=== PATIENT | male | born 1990 | race Caucasian/White ===

== ENCOUNTER 2023-04-05 14:00 | Emergency (ER) | payer SELFPAY ==
[~2023-04-05] VITALS: Ht 182.9 cm; Wt 102.1 kg
[2023-04-05] MEDS ORDERED: cefTRIAXone 1,000 MG VIAL (for IV or IM) IM STA (14:14)
[2023-04-05] MEDS ORDERED: TETANUS,DIPTH,PERTUSS P/F (BOOSTRIX) 0.5 ML VIAL IM ONE (14:15)
[2023-04-05] MEDS ORDERED: LIDOCAINE 1% INJ 20 ML VIAL INJ ONE (14:15)
[2023-04-05] MEDS ORDERED: LIDOCAINE 1% INJ 20 ML VIAL INJ STA (14:16)
[2023-04-05] MEDS ORDERED: LIDOCAINE 1% INJ 20 ML VIAL ONE (14:17)
--- NOTE | 2023-04-05 14:45 | Diagnostic Imaging Report ---
FINGER(S) INDICATION: Injury of index finger. COMPARISON: None available. TECHNIQUE: Three views of the left fingers. FINDINGS: Soft tissue defect is present along the radial and distal aspect of the index finger. No radiopaque foreign body. No acute fracture. IMPRESSION: Soft tissue injury without acute fracture or radiopaque foreign body. Dictated by: Dictated on workstation # [id number]
[2023-04-05] MEDS ORDERED: CEPH500C PO (15:25)
--- NOTE | 2023-04-05 15:27 | ED Upper Extremity ---
General Chief Complaint: Laceration Stated Complaint: LT FINGER LAC Nursing Triage Note: PT AMBULATE TO ROOM FS01 WITHOUT DIFFICULTY WITH C/O LAC TO LEFT INDEX FINGER. PT STATES HE WAS USING A HOLE SAW AND CUT FINGER. Source: patient History of Present Illness Date Seen by Provider: April 05, 2023 Time Seen by Provider: 14:02 Initial Comments 32-year-old male presenting with injury to his left index finger. He states he was using a pole saw and cut into his finger. He reports his last tetanus shot was 6 to 7 years ago. He has sensation still to the finger but is having pain going up into his elbow. He denies any other injuries. He does not take any routine medications and does not follow-up with any primary care provider. This happened around 1230 today. He had to help a relative take their dog to the vet before he could come here to the emergency department. Onset: this afternoon Severity: moderate Pain/Injury Location: left 2nd finger Method of Injury: incised (accidentally cut with saw) Modifying Factors: Worse With Movement Allergies and Home Medications Allergies Coded Allergies: Penicillins (Verified Allergy, Unknown, 04/05/23) amoxicillin (Verified Allergy, Unknown, 04/05/23) Patient Home Medication List Home Medication List Reviewed: Yes Cephalexin (Cephalexin) 500 Mg Capsule, 500 MG PO TID Prescribed by: ATIYA CAMPBELL on 04/05/23 1525 Review of Systems Constitutional: No chills, No fever EENTM: no symptoms reported Respiratory: no symptoms reported Cardiovascular: no symptoms reported Gastrointestinal: no symptoms reported Genitourinary: no symptoms reported Musculoskeletal: see HPI Skin: see HPI Psychiatric/Neurological: Denies Numbness Past Uwmvecr-Jqukei-Ptxrdp Hx Patient Social History Tobacco Use?: Yes Tobacco type used: Cigarettes Smoking Status: Heavy Tobacco Smoker Smokeless Tobacco Frequency: Never a User Use of E-Cig and/or Vaping dev: No Substance use?: No Alcohol Use?: Yes Alcohol type: Beer Alcohol Frequency: Daily Pt feels they are or have been: No Physical Exam Vital Signs Vital Signs - First Documented 04/05/23 04/05/23 14:05 15:28 Temp 36.9 Pulse 106 Resp 16 B/P (MAP) 140/91 (107) Pulse Ox 98 O2 Delivery Room Air Capillary Refill : Less Than 3 Seconds Height, Weight, BMI Height: '" Weight: lbs. oz. kg; 30.00 BMI Method: General Appearance: WD/WN, no apparent distress HEENT: PERRL/EOMI Neck: non-tender, full range of motion, supple, normal inspection Cardiovascular: normal peripheral pulses, regular rate, rhythm Respiratory: chest non-tender, lungs clear, normal breath sounds Hand: normal ROM, laceration (Complex laceration to the left index finger involving the nailbed. There is multiple lacerations and pieces of the fingertip with some tissue that is missing. 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, no motor/sensory deficits, alert, oriented x 3 Skin: warm/dry Procedures/Interventions Wound Location: Upper Extremities (Left index finger) Wound Length (cm): 3.5 Wound's Depth, Shape: irregular, nail-avulsed, contused tissue, sub Q Wound Explored: clean Irrigated w/ Saline (ccs): 200 Betadine Prep?: Yes Anesthesia: 1% Lidocaine Volume Anesthetic (ccs): 6 Suture: Chromic Suture Size: 5-0 Number of Sutures: 5 Layer Closure?: 1 Sterile Dressing Applied?: Yes Progress After obtaining verbal consent from the patient the wound was anesthetized using 6 mL of 1% plain lidocaine with a digital ring block fashion. Then a large turnicot was applied to help with bleeding and pain control. Using 5-0 chromic gut a total of 5 simple interrupted stitches were placed to help approximate the irregular contused wound edges and flap on the fingertip and nail. Most of these were through the remaining nail that was present to help approximate that and use it as a natural Bandage to cover the nailbed. Bleeding was controlled and pain was controlled well. Using antibiotic ointment and sterile gauze and bulky dressing was applied. Sent with a finger splint to be able to use once the bulky dressing was removed in 24 hours. Counseled on wound care as well as management of the stitches. Advised to return or be seen immediately if having concerns for infection such as redness streaking up his hand and arm, fever over 101, pus draining from the wound. Progress/Results/Core Measures Results/Orders My Orders Orders - ATIYA CAMPBELL MD Finger(S) (04/05/23 14:13) Dipht,Pertuss(Acell),Tet Adult (Boostrix (04/05/23 14:15) Ceftriaxone Iv/Im (Rocephin Iv/Im) (04/05/23 14:14) Lidocaine 1% Inj 20 Ml (Xylocaine 1% Inj (04/05/23 14:15) Lidocaine 1% Inj 20 Ml (Xylocaine 1% Inj (04/05/23 14:16) Lidocaine 1% Inj 20 Ml (Xylocaine 1% Inj (04/05/23 14:17) Medications Given in ED Current Medications Medications Dose Ordered Sig/Anna Route Start Time Stop Time Status Last Admin Dose Admin Diphtheria/ Tetanus/Acell Pertussis 0.5 ml ONCE ONCE IM 04/05/23 14:15 04/05/23 14:16 DC 04/05/23 14:27 0.5 ML Lidocaine HCl 2.1 ml ONCE ONCE INJ 04/05/23 14:15 04/05/23 14:16 DC 04/05/23 14:27 2.1 ML Vital Signs/I&O 04/05/23 04/05/23 14:05 15:28 Temp 36.9 36.0 Pulse 106 84 Resp 16 16 B/P (MAP) 140/91 (107) 133/89 Pulse Ox 98 O2 Delivery Room Air Room Air Blood Pressure Mean: 107 Progress Progress Note #1: Progress Note Obtain x-rays of the index finger to look for acute bony abnormality or foreign bodies. Counseled on follow-up and return precautions. Advised that we will clean the wound after the x-rays and see if there is anything that could be stitched together. Update his tetanus booster since it has been more than 5 years. Give him a Rocephin 1 g IM shot. Progress Note #2: Time: 14:28 Progress Note On my personal interpretation and review I did not appreciate any acute bony fractures. I verbally consented the patient and infiltrated with 1% plain lidocaine for total of 6 mL into the left index ring finger and her digital ring block. Then applied a turnicot to help with bleeding and pain control. Then after cleaning the wound and irrigating it with sterile water and Betadine soaked I used 5-0 Chromic Gut to approximate the wound edges and bring the pieces of the nailbed together. I used a total of 5 simple interrupted stitches. Placed to bulky nonadherent dressing. Counseled on management and wound care as well as infection control. Progress Note #3: Progress Note I reviewed the radiologist report on the x-rays and they also did not see any acute fracture or bony abnormality or foreign body. Patient was given Rocephin 1 g IM for antibiotic coverage here in the ED as well as updated tetanus booster. Discharged on Keflex 500 mg p.o. 3 times daily x7 days. Counseled to use ibuprofen and acetaminophen as needed for pain control. Keep hand elevated above heart level to help with pain. Diagnostic Imaging Diagonstic Imaging: Xray Plain Films/CT/US/NM/MRI: other (Left index finger) Comments [facility], [place] NAME: DEONTE WHITLOCK [employer] REC#: [id number] PT STATUS: REG ER : 1990 PHYSICIAN: ATIYA CAMPBELL MD ADMIT DATE: 04/05/23/ER FS Draft Date of Exam:04/05/23 FINGER(S) FINGER(S) INDICATION: Injury of index finger. COMPARISON: None available. TECHNIQUE: Three views of the left fingers. FINDINGS: Soft tissue defect is present along the radial and distal aspect of the index finger. No radiopaque foreign body. No acute fracture. IMPRESSION: Soft tissue injury without acute fracture or radiopaque foreign body. Dictated on workstation # [id number] Dict: 04/05/23 1438 Trans: 04/05/23 1445 [id number] Interpreted by: BRANDIE HERNÁNDEZ MD Electronically signed by: Reviewed: Reviewed by Me (I reviewed the radiologist report at [id number]) Departure Impression Primary Impression: Laceration of left index finger w/o foreign body with damage to nail Qualified Codes: S61.311A - Laceration without foreign body of left index finger with damage to nail, initial encounter Disposition: HOME, SELF-CARE Condition: Stable Departure-Patient Inst. Decision time for Depature: 15:25 Referrals: NO,LOCAL PHYSICIAN (PCP) Primary Care Physician [facility] Patient Instructions: Wound Care ED, Laceration Repair With Stitches ED, Common Finger Injuries ED Add. Discharge Instructions: Keep finger clean with soap and water. You may apply antibiotic ointment 2-3 times a day as needed to help prevent infection. Take the full course of antibiotics to help try and prevent infection. If you have redness streaking up your hand, pus draining from the wound, fever over 101 Fahrenheit you should return immediately or be seen in the clinic as you would need a different antibiotic or might need IV antibiotics. You may take acetaminophen or ibuprofen if needed for pain. Try to keep your hand elevated above heart level is much as possible to help with throbbing, swelling, pain. The stitches should dissolve and fall out on their own. Try to keep the fingertip protected and keep from hitting it on anything. Do not soak the wound as it can make the wound open back up. All discharge instructions reviewed with patient and/or family. Voiced understanding. Scripts Cephalexin (Cephalexin) 500 Mg Capsule 500 MG PO TID for finger laceration for 7 Days, #21 CAP 0 Refills Prov: ATIYA CAMPBELL MD 04/05/23 ATIAY CAMPBELL MD April 05, 2023 15:27
[2023-04-05 15:28] VITALS: BP 133/89
== END 2023-04-05 15:28 | disposition home or self-care (01) ==
LOC: ER FS 14:03
DX: S61.311A Laceration without foreign body of left index finger with damage to nail, initial encounter (principal); F17.210 Nicotine dependence, cigarettes, uncomplicated; Z23 Encounter for immunization; Z88.0 Allergy status to penicillin; Z28.310 Unvaccinated for COVID-19; W27.0XXA Contact with workbench tool, initial encounter
CPT/HCPCS: 12001; 73140; 90715